=== PATIENT | male | born 1985 | race Caucasian/White ===

== ENCOUNTER 2022-07-03 09:22 | Outpatient (CLI) | payer OTHER, SELFPAY ==
--- NOTE | 2022-07-03 11:00 | NEURO_ITS ---
Impression: # Complains of numbness of hands with nocturnal paresthesia. # Evolving left Carpal Tunnel Syndrome and early right Carpal Tunnel Syndrome. # No ulnar neuropathy. # Normal needle/EMG exam. Motor Nerve Conduction Upper Extremities Median Nerve Conduction Velocity (m/sec) Terminal Latency (msec) Response Voltage(mV) Elbow-Wrist Wrist Elbow Wrist Right 57 3.8 5 5 Left 60 3.1 4 3 Ulnar Nerve Conduction Velocity (m/sec) Terminal Latency (msec) Response Voltage(mV) Above Elbow Below Elbow Wrist Above Elbow Below Elbow Wrist Right 58 2.5 5 7 Left 57 2.2 7 9 F-Wave Latency Median (ms) Ulnar (ms) Right 27.6 27.4 Left 27.1 27.6 Sensory Nerve Conduction Upper Extremities Median Nerve Stimulation Terminal Latency (msec) Wrist/Digit Response Voltage (uV) Wrist Right 3.9/3.8 17/28 Left 2.9/2.8 32/68 Ulnar Nerve Stimulation Terminal Latency (msec) Wrist/Digit Response Voltage (uV) Wrist Right 2.3 68 Left 2.4 64 Radial Nerve Terminal Latency (msec) Response Voltage(mV) Right 2.0 14 Left 1.9 15 Left Right Muscles Examined Fibrillation Fasciculation Scarcity Voltage Duration Left Right Left Right Left Right Left Right Left Right Deltoid Biceps X X Brachioradialis Triceps X X Pronator Teres X X Ext Indicis X X Ext Digitorum X X Abd Poll Brev X X 1st Dorsal Interosseus X X Abd Dig Min MTDD
== END 2022-07-03 09:23 | disposition home or self-care (01) ==
PROVIDERS: PCP Family Medicine; Visit Provider Family Medicine
DX: G56.03 Carpal tunnel syndrome, bilateral upper limbs (principal)
CPT/HCPCS: 95886; 95911

== ENCOUNTER 2022-10-30 06:51 | Day surgery (SDC) | payer OTHER, SELFPAY ==
[2022-10-10 10:01] VITALS: BMI 27.4
[2022-10-30 07:43] VITALS: BP 141/89; PULSE 76; RESP 20; TEMP 36.6; O2SAT 100
--- NOTE | 2022-10-30 07:43 | WPDHPUPDATE1 ---
History and Physical Update Update Date/Time: 10/30/22 07:43 History and Physical has been reviewed, including an updated exam of the patient. There are NO changes in the patient's condition. Risks, benefits, and alternatives have been discussed and questions answered. Patient agrees to proceed with procedure.
[2022-10-30 07:50] VITALS: BP 144/87; PULSE 75; RESP 21; O2SAT 99
[2022-10-30 07:55] VITALS: BP 143/86; PULSE 76; RESP 12; O2SAT 100
[2022-10-30 08:00] VITALS: BP 143/85; PULSE 83; RESP 18; O2SAT 98
[2022-10-30 08:14] VITALS: BP 137/80; PULSE 86; RESP 12; O2SAT 99
[2022-10-30 08:18] VITALS: BP 135/86; PULSE 89; RESP 14; O2SAT 100
[2022-10-30] MEDS: LIDO 1%/EPINEPHRINE 1:100,000 50 ML VIAL 10 ML INFILTRATE (08:23)
--- NOTE | 2022-10-30 08:29 | W.PM.PROC2 ---
Procedure Note - Detailed Date of Procedure 10/30/22 Pre-op Diagnosis Right Carpal Tunnel Syndrome Post-op Diagnosis Same Procedure Performed The right open carpal tunnel release Surgeon Mike Daniels MD Anesthesia Local Description of Procedure the patient's right volar wrist was marked with his consent in the holding area. He was taken to the operating room where he was placed supine on the operating table. The extremity was prepped and draped in usual fashion. The site was remarked for the incision and locally infiltrated with 1% lidocaine with epinephrine. A time-out was held and confirmed. The tourniquet was utilized to 220 mmHg it and was up for 3 minutes. The incision was made as marked and blunt dissection revealed the palmar aponeurosis. This and the transverse retinaculum were incised with a 15. Blade. Under 3 point retraction the retinaculum was divided distally and proximally for complete release. No unusual anatomy was noted. The skin wound was closed with interrupted 4-0 nylon suture after releasing the tourniquet. The usual bandage was applied and he was discharged with instructions wound care and follow-up. He has a prescription for hydrocodone 5/325 6. Estimated Blood Loss 3 Tourniquet Time 3 Drains No Packing No Pathology None sent Complications No immediate complications Condition Stable Disposition Same day
== END 2022-10-30 08:35 | disposition home or self-care (01) ==
PROVIDERS: PCP Family Medicine; Visit Provider Plastic Surgery
PROC: (CPT 64721; principal; 2022-10-30 07:30)
DX: G56.01 Carpal tunnel syndrome, right upper limb (principal)
CPT/HCPCS: 64721

== ENCOUNTER → 2023-06-11 09:57 | Outpatient (CLI) | payer OTHER, SELFPAY ==
--- NOTE | ~2023-06-11 | XR_ITS ---
Cervical Spine: AP, lateral, open-mouth views Clinical History: Pain Findings: There is straightening of the normal cervical lordosis. The vertebral bodies and posterior elements appear intact. The intervertebral disc spaces are well maintained. Pre-vertebral soft tiss ues are unremarkable. Impression: Straightening of the normal cervical lordosis, otherwise unremarkable exam. Reviewed, dictated and finalized at location . Impression: Straightening of the normal cervical lordosis, otherwise unremarkable exam.
--- NOTE | ~2023-06-11 | XR_ITS ---
Right Shoulder Technique: AP and axillary views were obtained. Clinical History: Pain Findings: No acute fracture or dislocation seen. 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 Glenohumeral joint is intact. Soft tissues are unremarkable. Impression: Probable chronic, nonunited fracture of the distal clavicle, less likely os acromiale. This is a mild degenerative changes about the AC joint. Reviewed, dictated and finalized at location . Impression: Probable chronic, nonunited fracture of the distal clavicle, less likely os acr omiale. This is a mild degenerative changes about the AC joint.
--- NOTE | ~2023-06-11 | XR_ITS ---
Lumbosacral Spine: AP, oblique, and lateral views Clinical History: Pain Findings: The normal lordotic curve is maintained. The vertebral bodies and posterior elements are i ntact. The intervertebral disc spaces are preserved. The sacroiliac joints are normally outlined. Impression: No significant abnormality. Reviewed, dictated and finalized at [facility]. Impression: No significant abnormality.
== END ==
PROVIDERS: PCP Family Medicine; Visit Provider Family Medicine
DX: M25.511 Pain in right shoulder (principal); M54.41 Lumbago with sciatica, right side; G89.29 Other chronic pain; M54.12 Radiculopathy, cervical region; M43.8X2 Other specified deforming dorsopathies, cervical region
CPT/HCPCS: 72050; 72110; 73030